=== PATIENT | female | born 1945 | race Caucasian/White ===

== ENCOUNTER → 2016-07-13 | Outpatient (CLI) | payer MEDICARE, BC ==
[~2016-07-13] MED LIST: ADVIL200 MG PO; AMBIEN 5MG TABLE5 MG PO; AMITRIPTYLINE H25 M1 PO; ASPI325T6 PO; CELEXA40 MG PO; CLARITIN 1010 MG/TAB PO; DETROL LA4 PO; EXCEDRIN TENSIO1 TAB PO; EXCEDRIN1 TAB PO; FLONASE NASAL S16 GM NS; FOSAMAX5 MG PO; LODINE400 MG PO; MELATONIN3 M1 PO; MELATONIN5 M1 SL; NORCO 325 MG-7.1 TAB PO; PAMELOR50 MG PO; PREVACID 30MG30 M1 PO; PROAIR HFA0.09 MG/AC IH; PROMETHAZINE12.5 M5 PO; ROBAXIN 75750 MG/TAB PO; ROBITUSSIN100 MG/5 M PO; ROXICODONE 55 MG/TAB PO; RT ADVAIR 228 DISKUS IH; SINGULAIR 110 MG/TAB PO; SODIUM TABLET; TENORMIN 2525 MG/TAB PO; TYLENOL EXTRA500 M1 PO; ZESTRIL 10MG10 MG PO; ZESTRIL 5MG5 MG PO
== END ==
LOC: COL.RAD 08:35
PROVIDERS: Urology
DX: D35.02 Benign neoplasm of left adrenal gland (principal); Z85.520 Personal history of malignant carcinoid tumor of kidney
CPT/HCPCS: Q9967

== ENCOUNTER → 2017-03-03 | Outpatient (CLI) | payer MEDICARE, BC | LOC: MC.RAD 08:00 | DX: Z12.31 Encounter for screening mammogram for malignant neoplasm of breast (principal); N63.20 Unspecified lump in the left breast, unspecified quadrant; R92.1 Mammographic calcification found on diagnostic imaging of breast ==

== ENCOUNTER → 2017-03-09 | Outpatient (CLI) | payer MEDICARE, BC | LOC: MC.RAD 13:43 | DX: N60.02 Solitary cyst of left breast (principal); N63.20 Unspecified lump in the left breast, unspecified quadrant; R92.1 Mammographic calcification found on diagnostic imaging of breast ==

== ENCOUNTER → 2017-04-19 | Outpatient (CLI) | payer MEDICARE, BC | LOC: COL.RAD 12:43 | DX: M19.011 Primary osteoarthritis, right shoulder (principal); M75.101 Unspecified rotator cuff tear or rupture of right shoulder, not specified as traumatic | CPT/HCPCS: J3301; Q9967 ==

== ENCOUNTER 2017-07-02 06:33 | Emergency (ER) | payer MEDICARE, BC ==
[~2017-07-02] VITALS: Ht 162.6 cm; Wt 70.5 kg
[2017-07-02 06:35] VITALS: BP 156/70
[2017-07-02 07:26] LABS: BASO # 0.1 (0.0-0.2); BASO % 0.8 % (0.0-2.0); EOS # 0.6 (0.0-0.7); EOS % 5.5 % (0-4.0); GRAN # 7.8 (1.4-6.5); GRAN % 69.1 % (42.2-75.2); HEMATOCRIT 37.9 % (37.0-47.0); HEMOGLOBIN 12.1 g/dl (12.5-16.0); LYMPH # 1.5 (1.2-3.4); LYMPH % 13.7 % (20.0-51.0); MEAN CELL VOLUME 90 fl (80.0-100.0); MEAN CORPUSCULAR HEMOGLOBIN 29 pg (27.0-31.0); MEAN CORPUSCULAR HGB CONC 32 g/dl (33.0-37.0); MEAN PLATELET VOLUME 10.4 fl (7.4-10.4); MONO # 1.2 (0.1-0.6); MONO % 10.5 % (1.7-9.3); PLATELET COUNT 252 K/mm3 (130-400); RED BLOOD COUNT 4.21 M/mm3 (4.10-5.30); REDCELL DISTRIBUTION WIDTH-CV 13.4 % (11.5-14.5)
[2017-07-02 07:34] LABS: ALANINE AMINOTRANSFERASE 34 U/L (9-52); ALBUMIN 3.7 gm/dL (3.5-5.0); ALKALINE PHOSPHATASE 85 U/L (50-136); ANION GAP 7 mmol/L (7-16); AST,SGOT 23 U/L (15-37); BILIRUBIN,TOTAL 0.6 mg/dL (0.0-1.0); BLOOD UREA NITROGEN 20 mg/dL (7-17); CALCIUM 8.4 mg/dL (8.4-10.2); CARBON DIOXIDE 25 mmol/L (22-30); CHLORIDE 103 mmol/L (98-107); CREATININE, serum 0.71 mg/dL (0.52-1.25); GLUCOSE 89 mg/dL (74-106); LIPASE 34 U/L (23-300); POTASSIUM 4.3 mmol/L (3.4-5.0); SODIUM 134 mmol/L (137-145); TOTAL PROTEIN 6.6 gm/dL (6.4-8.2)
[2017-07-02 07:39] LABS: INR 1.2 (0.8-3.0); PROTHROMBIN TIME 13.4 SECONDS (9.7-12.8)
[2017-07-02 07:42] LABS: PARTIAL THROMBOPLASTIN TIME 29.7 SECONDS (26.0-37.0)
[2017-07-02 07:45] LABS: TROPONIN-I < 0.012 ng/mL (0.000-0.034)
[2017-07-02] MEDS ORDERED: ZITHROMAX Z PA250 MG PO (08:31)
[2017-07-02] MEDS ORDERED: PREDNISONE20 MG PO (08:31)
[2017-07-02 08:47] VITALS: PULSE 88; TEMP 98.1
== END 2017-07-02 08:45 | disposition home or self-care (01) ==
LOC: COL.ER 06:33
PROVIDERS: Emergency Medicine
DX: J20.9 Acute bronchitis, unspecified (principal); J45.901 Unspecified asthma with (acute) exacerbation; J06.9 Acute upper respiratory infection, unspecified; I10 Essential (primary) hypertension; E78.5 Hyperlipidemia, unspecified; F32.9 Major depressive disorder, single episode, unspecified; Z79.51 Long term (current) use of inhaled steroids

== ENCOUNTER → 2017-07-30 | Outpatient (CLI) | payer MEDICARE, BC ==
[~2017-07-30] MED LIST changes: +PREDNISONE20 MG PO; +ZITHROMAX Z PA250 MG PO
== END ==
LOC: COL.RAD 10:32
DX: Z85.520 Personal history of malignant carcinoid tumor of kidney (principal); Q44.6 Cystic disease of liver; Z98.1 Arthrodesis status
CPT/HCPCS: Q9967

== ENCOUNTER → 2018-03-17 | Outpatient (CLI) | payer MEDICARE, BC ==
[~2018-03-17] MED LIST changes: +CEFACLOR250 MG PO; +DULCOLAX STOOL100 MG PO; +ZOFRAN 4MG T4 MG/TAB PO
== END ==
LOC: MC.RAD 08:53
DX: Z12.31 Encounter for screening mammogram for malignant neoplasm of breast (principal)

== ENCOUNTER → 2018-08-08 | Outpatient (CLI) | payer MEDICARE, BC | LOC: COL.RAD 07:38 | DX: D35.00 Benign neoplasm of unspecified adrenal gland (principal); Z85.528 Personal history of other malignant neoplasm of kidney; Z98.1 Arthrodesis status; Z90.710 Acquired absence of both cervix and uterus | CPT/HCPCS: Q9967 ==

== ENCOUNTER → 2019-03-31 | Outpatient (CLI) | payer MEDICARE, BC | LOC: MC.RAD 09:03 | DX: Z12.31 Encounter for screening mammogram for malignant neoplasm of breast (principal) ==

== ENCOUNTER 2019-11-18 08:35 | Emergency (ER) | payer MEDICARE, BC ==
[~2019-11-18] VITALS: Ht 162.6 cm; Wt 70.5 kg
[2019-11-18 08:42] VITALS: BP 157/74; TEMP 98.1
[2019-11-18 08:57] LABS: COLLECTION METHOD CLEAN CATCH
[2019-11-18 09:08] LABS: PH 6 (5-8); SQUAMOUS EPITHELIAL 0-2 /hpf; URINE APPEARANCE Hazy; URINE BACTERIA None Seen /hpf; URINE BILIRUBIN Negative (NEGATIVE); URINE BLOOD 3+ (NEGATIVE); URINE COLOR Amber; URINE GLUCOSE Negative (NEGATIVE); URINE KETONE Negative (NEGATIVE); URINE LEUKOCYTE ESTERASE Negative (NEGATIVE); URINE NITRATE Positive (NEGATIVE); URINE PROTEIN(semi-quant) 3+ (NEGATIVE); URINE RBC >50 /hpf; URINE UROBILINOGEN >=4.0 mg/dL (NEGATIVE)
[2019-11-18] MEDS ORDERED: CEFTIN500 MG PO (10:27)
[2019-11-18 10:35] VITALS: PULSE 71
== END 2019-11-18 10:35 | disposition home or self-care (01) ==
LOC: COL.ER 08:35
PROVIDERS: Emergency Medicine
DX: N39.0 Urinary tract infection, site not specified (principal); I10 Essential (primary) hypertension; J45.909 Unspecified asthma, uncomplicated; Z90.89 Acquired absence of other organs; Z90.710 Acquired absence of both cervix and uterus; Z79.51 Long term (current) use of inhaled steroids

== ENCOUNTER → 2022-07-16 | Outpatient (CLI) | payer MEDICARE, BC ==
[~2022-07-16] MED LIST changes: +CEFTIN500 MG PO
== END ==
LOC: MC.RAD 12:36
DX: N60.02 Solitary cyst of left breast (principal)